=== PATIENT | female | born 2005 | race Caucasian/White ===

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

== ENCOUNTER 2025-07-08 15:25 | Outpatient (CLI) | payer OTHER, SELFPAY ==
[2025-07-08 14:43] LABS: Coronavirus 19, PCR Not Detected (NotDetected); Influenza A, PCR Not Detected (NotDetected); Influenza B, PCR Not Detected (NotDetected)
== END 2025-07-08 23:59 ==
LOC: LAB.DROPOF 07-12 15:26
PROVIDERS: PCP Nurse Practitioner; Visit Provider Student in an Organized Health Care Education/Training Program
DX: J06.9 Acute upper respiratory infection, unspecified (principal)
CPT/HCPCS: 87631

== ENCOUNTER 2025-07-12 09:10 | Emergency (ER) | payer OTHER, SELFPAY ==
--- NOTE | 2025-07-12 09:15 | ECG_ITS ---
APPROVED REPORT Exam: Resting ECG HR:69 bpm ECG Measurements Heart Rate 69 AXES QRSd 102 QRS 68 QT 356 T 54 QTc 376 Conclusion Normal sinus rhythm (p in Lead I, V2) Normal [place] Normal intervals NO STEMI Electronically signed by : Kenneth Storm, 07/12/2025 17:21:00
[2025-07-12 09:19] VITALS: BP 173/117; PULSE 94; RESP 16; TEMP 36.7; O2SAT 99; BMI 22.1
[2025-07-12 09:29] VITALS: PULSE 91
[2025-07-12 09:30] VITALS: BP 161/111; PULSE 74; RESP 14; O2SAT 98
[2025-07-12 09:58] LABS: Hematocrit 41.4 % (37.0-47.0); Hemoglobin 14.1 g/dL (12.2-16.2); Immature Granulocytes % 0.5 %; Mean Corpuscular HGB Conc 34.1 g/dL (31.8-35.4); Mean Corpuscular Hemoglobin 27.8 pg (27.0-31.2); Mean Corpuscular Volume 81.5 fl (81-99); Nucleated Red Blood Cells % 0 %; Platelet Count 233 K/mm3 (142-424); Red Blood Count 5.08 M/mm3 (4.20-5.40); Red Cell Distribution Width-SD 37.2 fL; White Blood Count 6.6 K/mm3 (4.5-13.0)
--- NOTE | 2025-07-12 09:59 | XR_ITS ---
FINAL REPORT CLINICAL HISTORY: chest pain COMPARISON: None FINDINGS: The heart size is normal. The mediastinum is normal. There is no focal infiltrate or edema. There are no pleural effusions. There is no pneumothorax. There is no osseous abnormality. IMPRESSION: No acute cardiopulmonary process Reviewed, Interpreted and Dictated by Tee Rios MD Transcribed by Tricia Russ Authenticated and . [facility]
[2025-07-12 10:00] VITALS: BP 145/94; PULSE 62; RESP 20; O2SAT 98
[2025-07-12 10:08] LABS: Albumin Level 4.9 g/dl (3.5-5.0); Chloride 107 mmol/L (98-107); Potassium 4.1 mmoL/L (3.5-5.1); Sodium 138 mmol/L (136-145)
[2025-07-12 10:10] LABS: Blood Urea Nitrogen 13 mg/dl (7-17); Creatinine Clearance Estimated 95 mL/min (50-200); Creatinine,Serum 0.70 mg/dl (0.52-1.04); Estimated Glomerular Filt Rate 108 ml/min (>60); GFR (African American) 130 ML/MIN (>60)
[2025-07-12 10:11] LABS: Alanine Aminotransferase 16 U/L (12-78); Albumin/Globulin Ratio 1.6 (1.1-1.8); Alkaline Phosphatase 47 U/L (38-126); Anion Gap 14.1 mEq/L (5-15); Aspartate Amino Transferase 36 U/L (14-36); Bilirubin,Total 0.7 mg/dl (0.2-1.3); Calcium 9.2 mg/dl (8.4-10.2); Carbon Dioxide 21 mmol/L (22.0-30.0); Globulin 3.0 g/dL (1.3-3.2); Glucose 108 mg/dl (74-100); Total Protein,Serum 7.9 g/dl (6.3-8.2)
[2025-07-12 10:23] LABS: HCG Qualitative, Serum Negative (Negative)
[2025-07-12 10:26] LABS: Troponin I < 0.01 ng/ml (0.00-0.034)
[2025-07-12 10:27] LABS: Lipase 86 U/L (23-300)
[2025-07-12 10:33] VITALS: BP 136/85; PULSE 72; RESP 20; O2SAT 99
--- NOTE | 2025-07-12 10:58 | ED_ITS ---
Discharge Plan Disposition Patient Disposition: Home, Self-Care Condition: Good Referrals Follow up/Referrals: Adelita Jackman APRN [Primary Care Provider, Medical] - See instructions Activity Restrictions/Add. Instructions Additional Instructions/Restrictions: Please follow up with your primary care doctor for your elevated blood pressure. If any new or worsening symptoms please return. Clinical Impressions Clinical Impression: Chest pain Print Language Print Language: Syriac Discharge ED Provider: Kenneth Storm General Chief Complaint: Chest Pain Stated Complaint: Chest Pain Time Seen by Provider: 07/12/25 09:15 Mode of Arrival: EMS Source of Information: Patient and EMS Description of Symptoms (Recalled from ER Triage Doc. by RN): Patient presents to ED via EMS with complaints of chest apin and dizziness. States she was moving equipment at work and felt slight chest pain along with dizziness. Pt states the pain went away when she sat down and has not returned since. Pt is hypertensive upon triage as well as with EMS. History of Present Illness HPI narrative: This is a 19-year-old female patient who is presenting to the emergency department today for evaluation of chest pain. Patient states that she was recently seen by her primary care physician for evaluation of elevated blood pressure. They elected to not start her on any medication because of her age. She states today that she was at work and she began experiencing vomiting followed by chest pain. She states her pain is not radiational and not exertional in nature. She voices particular concern over the fact that her mother of an acute coronary syndrome at the age of 25. She has not had any lower extremity erythema or edema. She is not on control therapy. No hemoptysis. No history of cancer. No history of blood clots. Related Data Allergies Allergy/AdvReac Type Severity Reaction Status Date / Time No Known Allergies Allergy Verified 07/08/25 09:37 [facility] Disclaimer: The information contained in this section may have been updated after the patient was seen, as this information can be updated by other users. Medical History Allergic rhinitis Fever blister Otitis media Social History Smoking Status: Current every day smoker second hand exposure: Yes alcohol intake: never current occupational status: student Travel in the last 8 weeks?: None household members: family and caregiver housing: house Have you lived/traveled outside [place] in past 30 days?: No Contact w/someone who lives/traveled outside US past 30 days?: No Exposure to someone with infectious disease in past 14 days?: No Do you have a fever (greater than 100.4 F or 38 C)?: No Have you tested positive for COVID-19?: No Exposed to someone with COVID-19 in past 14 days?: No Do you have a sore throat?: No Do you have a cough?: No Do you have any weakness?: No Do you have any diarrhea?: No Are you experiencing any unusual bleeding?: No Do you have any muscle aches/pain?: No Do you have any abdominal pain?: No Are you experiencing loss of taste or smell?: No ROS Obtained: Yes Systems reviewed as appropriate & no additional complaints except as documented Physical Exam General General appearance: other (See MDM) Respiratory Respiratory exam: Present other (See MDM) Cardiovascular Cardiovascular exam: Present other (See MDM) Neurological Exam Neurological exam: Present other (See MDM) HEART Score HEART Score HEART Score assessment performed?: Yes History (anamnesis): Slightly suspicious ECG: Normal Age: <45 years Risk factors: No known risk factors Troponin: </= normal limit HEART Score: 0 Critical Care Critical Care Time Critical Care Time: No Medical Decision Making Medical Records Medical records reviewed: Yes I reviewed the patient's medical records. Ziyad Inquiry Pt receiving controlled substance: No Ziyad was queried for this patient: No Vital Signs Vital Signs: 07/12/25 09:19 07/12/25 09:29 07/12/25 09:30 Temperature 98.0 F Temperature Source Oral Pulse Rate 91 H 74 Pulse Rate [Right Apical] 94 H Respiratory Rate 16 14 Blood Pressure 161/111 H Blood Pressure [Right Arm] 173/117 H Blood Pressure Mean 123 Blood Pressure Mean [Right Arm] 135 Blood Pressure Source [Right Arm] Automatic Cuff Blood Pressure Position [Right Arm] Sitting 02 Sat by Pulse Oximetry 99 98 Oxygen Delivery Method Room Air 07/12/25 10:00 07/12/25 10:33 Temperature Temperature Source Pulse Rate 62 72 Pulse Rate [Right Apical] Respiratory Rate 20 20 Blood Pressure 145/94 H 136/85 Blood Pressure [Right Arm] Blood Pressure Mean Blood Pressure Mean [Right Arm] Blood Pressure Source [Right Arm] Blood Pressure Position [Right Arm] 02 Sat by Pulse Oximetry 98 99 Oxygen Delivery Method Lab Data Labs: Lab Results 07/12/25 09:10: WBC 6.6, RBC 5.08, Hgb 14.1, Hct 41.4, MCV 81.5, MCH 27.8, MCHC 34.1, RDW 12.6, Plt Count 233, MPV 10.5 H, Neut % (Auto) 59.1, Lymph % (Auto) 28.7, [place] % (Auto) 9.7 H, Eos % (Auto) 1.2, Baso % (Auto) 0.8, Neut # (Auto) 3.9, Lymph # (Auto) 1.9, [place] # (Auto) 0.6, Eos # (Auto) 0.1, Baso # (Auto) 0.1, Sodium 138, Potassium 4.1, Chloride 107, Carbon Dioxide 21 L, Anion Gap 14.1, BUN 13, Creatinine 0.70, Estimated Creat Clear 95, Estimated GFR 108, Est GFR ( Amer) 130, Glucose 108 H, Calcium 9.2, Total Bilirubin 0.7, AST 36, ALT 16, Alkaline Phosphatase 47, Troponin I < 0.01, Total Protein 7.9, Albumin 4.9, Globulin 3.0, Albumin/Globulin Ratio 1.6, Lipase 86, Serum HCG, Qual Negative 07/12/25 11:40: Troponin I < 0.01 07/12/25 09:10 07/12/25 09:10 Response Orders (Tests/Meds): ORDERS Category Date Time Status CXR --portable [XR chest portable] Stat Exams 07/12/25 09:59 Completed Complete Blood Count Auto Diff Stat Lab 07/12/25 09:10 Completed Comprehensive Metabolic Panel Stat Lab 07/12/25 09:10 Completed D-Dimer Stat Lab 07/12/25 09:10 Stop Req HCG Qualitative, Serum Stat Lab 07/12/25 09:10 Completed Lipase Stat Lab 07/12/25 09:10 Completed Trop I [Troponin I] Stat Lab 07/12/25 11:40 Completed Troponin I Q3H Lab 07/12/25 15:00 Ordered Troponin I Q3H Lab 07/12/25 18:00 Ordered Troponin I Stat Lab 07/12/25 09:10 Completed ECG Data Tracing #1: Attestation: I reviewed this ECG and interpreted as documented below: ECG Narrative: EKG personally interpreted by me demonstrates normal sinus rhythm with sinus arrhythmia and a rate of 69 bpm, normal axis, no [place] prolongation, narrow QRS, no QTc prolongation. No ST elevation or depression. No overt signs of ischemia or arrhythmia MDM Narrative Medical Decision Narrative: In summary, this is a 19-year-old female patient who is presented to the emergency department today for evaluation of chest pain. Patient states that she does not have any significant comorbidities but she has been seeing her primary care provider recently for elevated blood pressure. They have not placed her on blood pressure medication because of her age. On initial evaluation of the patient they were resting comfortably in no acute distress and nontoxic in appearance. They are hemodynamically stable, saturating well room air, and are neurologically intact. She is mildly hypertensive on my initial evaluation On physical examination the patient's heart and lungs are clear to auscultation bilaterally. She is not tachycardic. No asymmetric lower extremity erythema or edema. No abdominal tenderness to palpation. Differential diagnosis to include hypertension, electrolyte derangement, acute kidney injury, pneumothorax, ACS/MO, among others. I did consider the possibility of a pulmonary embolus, however the patient is low risk by Wells criteria and her PERC score is 0. No evidence of right heart strain on EKG. Therefore we will not proceed with further workup for pulmonary embolus. Labs were personally turbid by me and demonstrate no actionable normalities. Troponins are nonischemic. Chest x-ray was personally turbid by me and demonstrates no lobar consolidation or pleural effusion. Official radiology read is in agreement states there is no acute abnormality. On final reassessment of the patient she is resting comfortably and in no acute distress. Her blood pressure has improved. My overall impression, especially given the fact that she had vomiting followed by chest pain, is that she is likely experiencing gastritis or acid reflux, that contributed to vomiting which then resulted in chest pain. I have recommended that she follow-up with her primary care provider for this as well as her hypertension. At this time all questions have and answered and all parties are agreeable with the decision of discharge home
--- NOTE | 2025-07-12 11:51 | PC.NURSE ---
d dimer results still not back yet called lab for an update as well as repeat trop placed and sent and was informed analyzer was down, er providers made aware
[2025-07-12 12:27] LABS: Troponin I < 0.01 ng/ml (0.00-0.034)
[2025-07-12 12:47] VITALS: BP 142/89; PULSE 84; RESP 18; TEMP 36.4; O2SAT 98
[2025-07-12 13:05] LABS: D-Dimer 0.36 ug/mL (0.0-0.5)
== END 2025-07-12 12:50 | disposition home or self-care (01) ==
PROVIDERS: Emergency Provider Student in an Organized Health Care Education/Training Program; PCP Nurse Practitioner
DX: R07.9 Chest pain, unspecified (principal); R11.10 Vomiting, unspecified; F17.210 Nicotine dependence, cigarettes, uncomplicated
CPT/HCPCS: 71045; 80053; 83690; 84484; 84703; 85025; 85378; 93005; 99284

== ENCOUNTER 2025-09-02 12:07 | Outpatient (CLI) | payer OTHER, SELFPAY ==
[2025-09-02 16:03] LABS: Coronavirus 19, PCR Not Detected (NotDetected); Influenza A, PCR Not Detected (NotDetected); Influenza B, PCR Not Detected (NotDetected)
== END 2025-09-02 23:59 ==
LOC: LAB.DROPOF 09-03 02:52
PROVIDERS: PCP Student in an Organized Health Care Education/Training Program; Visit Provider Student in an Organized Health Care Education/Training Program
DX: J06.9 Acute upper respiratory infection, unspecified (principal)
CPT/HCPCS: 87631